=== PATIENT | female | born 1975 | race Caucasian/White ===

== ENCOUNTER → 2024-06-13 | Outpatient (CLI) | payer OTHER, SELFPAY ==
[2024-06-13 11:21] LABS: Basophils % (Auto) 0 % (0-2.5); Eosinophils # (Auto) 0.1 Thou/mm3 (0.0-0.5); Eosinophils % (Auto) 1 % (0-10); Hematocrit 37.9 % (36.0-46.0); Hemoglobin 12.7 g/dL (12.0-16.0); Immature Granulocytes % (Auto) 0 % (0-0); Immature Granulocytes Auto 0.01 Thou/mm3 (0.00-0.00); Lymphocytes # (Auto) 1.2 Thou/mm3 (1.0-4.8); Lymphocytes % (Auto) 26 % (10-50); Mean Corpuscular HGB Conc 33.5 g/dl (31.0-37.0); Mean Corpuscular Hemoglobin 31.3 pg (25.0-35.0); Mean Corpuscular Volume 93 fL (80-100); Monocytes # (Auto) 0.4 Thou/mm3 (0.0-0.8); Monocytes % (Auto) 9 % (0-12); Neutrophils % (Auto) 63 % (37-80); Nucleated Red Blood Cell % 0 /100 WBC (0); Platelet Count 266 Thou/mm3 (140-440); RDW Standard Deviation 41.5 fL (36.4-46.3); Red Blood Count 4.06 Miln/mm3 (4.00-5.20); White Blood Count 4.7 Thou/mm3 (3.6-11.0)
[2024-06-13 11:36] LABS: Glucose Estimated Average 105 mg/dL (80-131); Hemoglobin A1C 5.3 % Hgb (4.8-6.0)
[2024-06-13 11:43] LABS: Alanine Aminotransferase 29 U/L (10-49); Albumin, Serum 4.9 gm/dL (3.5-5.0); Alkaline Phosphatase 61 U/L (46-116); Anion Gap 5 (7-16); Aspartate Amino Transferase 28 U/L (0-34); BUN/Creatinine Ratio 13 Ratio (12-20); Blood Urea Nitrogen 12 mg/dL (9-23); Calcium 9.7 mg/dL (8.3-10.6); Calcium (Corrected) 9.7 mg/dL (8.5-10.1); Carbon Dioxide 29.6 mMol/L (20.0-31.0); Cardiac Risk Estimate 2.7 RATIO (3.7-5.6); Chloride 106 mMol/L (98-107); Cholesterol 187 mg/dL (132-200); Creatinine (Component) 0.9 mg/dL (0.6-1.3); Free T4 (Free Thyroxine) 1.07 ng/dL (0.89-1.76); Globulin 2.4 gm/dL (2.3-3.5); Glucose 91 mg/dL (74-106); HDL Cholesterol 69 mg/dL (40-60); LDL Cholesterol,Calculated 105 mg/dL (0-130); Magnesium 1.8 mg/dL (1.6-2.6); Osmolality,Calculated 280 (275-295); Potassium 4.6 mMol/L (3.4-5.1); Sodium 141 mMol/L (136-145); Thyroid Stimulating Hormone 1.53 uIU/mL (0.55-4.78); Total Protein 7.3 gm/dL (5.7-8.2); Triglycerides 66 mg/dL (30-150); eGFR > 60 See Note
[2024-06-13 11:52] LABS: Folate 16.56 ng/mL (>5.38); Vitamin B12 553 pg/mL (211-911); Vitamin D 25 Hydroxy Total 42.5 ng/mL (7.3-40.2)
[2024-06-13 12:17] LABS: Ferritin 95 ng/mL (7.3-270.7); Total Iron Binding Capacity 286 mcg/dL (250-425)
[2024-06-13 12:27] LABS: Iron 96 mcg/dL (50-170)
[2024-06-13 13:22] LABS: Creatinine MALB Rnd Ur 93 mg/dL (30-125); Microalbumin, Random Urine < 3 mg/L (0-300)
[2024-06-19 06:43] LABS: Osmolality, Urine* 465 mOsm/kg (50-1200)
== END | disposition home or self-care (01) ==
PROVIDERS: PCP Family Medicine; Referring Provider Student in an Organized Health Care Education/Training Program; Visit Provider Student in an Organized Health Care Education/Training Program
DX: E04.1 Nontoxic single thyroid nodule (principal); Z83.2 Family history of diseases of the blood and blood-forming organs and certain disorders involving the immune mechanism; Z83.3 Family history of diabetes mellitus; Z82.49 Family history of ischemic heart disease and other diseases of the circulatory system
CPT/HCPCS: 36415; 80053; 80061; 82043; 82306; 82570; 82607; 82728; 82746; 83036; 83540; 83550; 83735; 83935; 84439; 84443; 85025

== ENCOUNTER → 2024-07-03 | Outpatient (CLI) | payer OTHER, SELFPAY ==
--- NOTE | 2024-07-03 | XR_ITS ---
Examination: Abdomen AP single view Technique: AP portable supine abdomen, single view Exam date and time: July 03, 2024 0827 hours INDICATIONS: Abdominal pain and distention several years. FINDINGS: Moderate to large amounts of stool throughout the colon No obstruction No free air IMPRESSION: Moderate to large amounts of stool throughout the colon
== END | disposition home or self-care (01) ==
LOC: CDIM 07:42
PROVIDERS: PCP Specialist; Referring Provider Specialist; Visit Provider Specialist
DX: K59.00 Constipation, unspecified (principal)
CPT/HCPCS: 74018